=== PATIENT | female | born 1985 | race Caucasian/White ===

== ENCOUNTER 2023-05-06 15:38 | Emergency (ER) | payer OTHER, SELFPAY ==
--- NOTE | ~2023-05-06 | CT_ITS ---
EXAMINATION: CT abdomen pelvis w con DATE: 05/06/2023 18:29 INDICATION: Right upper quadrant abdominal pain. Abnormal liver function tests. TECHNIQUE: Computed tomography (CT) of the abdomen and pelvis was performed with 100 mL Omnipaque-350 intravenous contrast. Automated exposure control and iterative reconstruction technique were employe d. The dose-length product was 1486.35 mGy-cm. COMPARISON: None FINDINGS: Lung bases are clear. Heart size is normal. No pericardial or pleural effusion. A few small calcified gallstones along the inferior aspect of the fundus of the otherwise normal-appearing gallbladder. No gallbladder dilation, wall thickening or pericholecystic infiltrate stranding to suggest acute evie cystitis. No calcified choledocholithiasis with no intra or extrahepatic biliary ductal dilation. Ara er, spleen, pancreas, bilateral adrenal glands and left kidney are normal. 4.2 cm exophytic right meredith al cyst. Bowels including the appendix are normal. 3 cm left adnexal cyst/follicle. Right adnexa, sav[place]ong[place] fili and bladder are normal. No free intraperitoneal gas or fluid. No pathologically enlarged abdomina l or pelvic lymphadenopathy. Mild lower lumbar levocurvature. IMPRESSION: 1. Cholelithiasis without findings of acute cholecystitis, choledocholithiasis or biliary ductal dila tion. Should liver function tests remain elevated would consider further evaluation with MRCP. Reviewed, dictated and finalized at location A. IMPRESSION: 1. Cholelithiasis without findings of acute cholecystitis, choledocholithiasis or biliary ductal dilation. Should liver function tests remain elevated would c onsider further evaluation with MRCP.
[2023-05-06 15:45] VITALS: BP 144/83; PULSE 108; RESP 16; TEMP 36.8; O2SAT 99
[2023-05-06 16:38] LABS: Basophils Absolute Auto 0.1 K/mm3 (0.0-0.1); Basophils Percent Auto 0.4 % (0.2-1.2); Eosinophils Absolute Auto 0.1 K/mm3 (0-0.3); Eosinophils Percent Auto 0.8 % (0-4.4); Hematocrit 44.5 % (37.0-47.0); Hemoglobin 14.9 g/dL (12.0-15.0); Immature Granulocyte Absolute 0.04 K/mm3 (0.00-0.031); Immature Granulocyte Percent A 0.4 % (0-0.5); Lymphocytes Absolute Auto 2.34 K/mm3 (0.9-3.2); Lymphocytes Percent Auto 20.6 % (18.3-44.2); Mean Corpuscular HGB Conc 33.5 g/dl (32-36); Mean Corpuscular Hemoglobin 30.3 pg (26-34); Mean Corpuscular Volume 90.6 fl (80-100); Mean Platelet Volume 9.5 fl (7.4-10.4); Monocytes Absolute Auto 0.7 K/mm3 (0.1-0.6); Monocytes Percent Auto 6.2 % (2.6-8.5); Neutrophils Absolute Auto 8.1 K/mm3 (1.3-6.7); Neutrophils Percent Auto 71.6 % (45.5-73.1); Platelet Count Result 356 k/mm3 (150-375); Red Blood Count 4.91 M/mm3 (4.2-5.4); Red Cell Distribution Width 12.1 % (11.5-14.5); White Blood Count 11.4 K/mm3 (4.5-10.0)
[2023-05-06 16:48] LABS: Alanine Aminotransferase 85 U/L (6-35); Albumin Level 4.4 g/dL (3.5-5.1); Alkaline Phosphatase 78 U/L (38-126); Anion Gap 8 mmol/L (8-16); Aspartate Amino Transferase 117 U/L (14-36); Bilirubin,Total 0.6 mg/dL (0.2-1.3); Blood Urea Nitrogen 13 mg/dL (7-17); Calcium 8.9 mg/dL (8.4-10.2); Carbon Dioxide 26 mmol/L (22-30); Chloride 105 mmol/L (98-107); Estimated CRCL calculation 104 ml/min; Estimated Glomerular Filt Rate > 60; Glucose 119 mg/dL (65-110); Lipase 36 U/L (23-300); Sodium 139 mmol/L (137-145)
[2023-05-06] MEDS: ONDANSETRON INJ 4 MG/2 ML VIAL IV PUSH (16:49)
[2023-05-06] MEDS: SODIUM CHLORIDE 0.9% IV 1,000 ML 999 ML IV CONT (16:49)
[2023-05-06] MEDS: MORPHINE SULFATE (*CRX) 4 MG/ML INJ IV PUSH (16:49)
--- NOTE | 2023-05-06 16:53 | ED.ABDPAIN ---
HPI - Abdominal Pain General Chief Complaint: Abdominal Pain Stated Complaint: RUQ abdominal/epigastric pain Time Seen by Provider: 05/06/23 16:09 Source: patient Mode of arrival: ambulatory Limitations: no limitations History of Present Illness HPI narrative: Patient is a 37-year-old female who presents to ED with report of right upper quadrant abdominal pain. Patient reports she was woken up in the middle of the night with pain in her RUQ. She states the pain eventually improved slightly this morning, but then became worse again after eating a [employer] sandwich for lunch. Pain has been constant since then. She reports nausea and diaphoresis. Denies documented fever. Denies vomiting. Denies any issues with diarrhea or constipation. Denies urinary symptoms. She tried taking Tylenol for the pain without relief. Related Data Home Medications Medication Instructions Recorded Confirmed dicyclomine 20 mg tablet 20 mg PO BID 07/04/22 07/04/22 famotidine 20 mg tablet 20 mg PO DAILY 07/04/22 07/04/22 Allergies Allergy/AdvReac Type Severity Reaction Status Date / Time Penicillins Allergy Severe Rash Verified 05/06/23 15:39 Review of Systems Review of Systems: CONSTITUTIONAL: Denies fever, chills, or sweats. CARDIOVASCULAR: Denies chest pain. RESPIRATORY: Denies dyspnea. GASTROINTESTINAL: See HPI. GENITOURINARY: Denies dysuria or hematuria. 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 HEAD: Normocephalic, atraumatic. NECK: Supple. No adenopathy, no masses. RESPIRATORY: Airway patent, respirations nonlabored. Clear to auscultation bilaterally, no rales, rhonchi, wheezing. CARDIOVASCULAR: Regular rate and rhythm without murmurs, rubs, or gallops. Radial pulses 2+ and equal bilaterally. ABDOMINAL: Soft, tenderness throughout RUQ and epigastric region, nondistended, no hepatosplenomegaly. Normoactive BS. MUSCULOSKELETAL: Moves all extremities. Strength/ROM intact without gross deformities. SKIN: Warm, dry, normal color. No rashes. NEURO: A&O X3. Speech clear. Cranial nerves II-XII grossly intact. Steady gait. No ataxic movements. PSYCHIATRIC: Appropriate mood and affect. Normal interaction. Course Vital Signs Vital signs: Vital Signs Temperature 98.3 F 05/06/23 15:45 Pulse Rate 108 H 05/06/23 15:45 Respiratory Rate 16 05/06/23 15:45 Blood Pressure 144/83 H 05/06/23 15:45 Pulse Oximetry 99 05/06/23 15:45 Oxygen Delivery Room Air 05/06/23 15:45 Temperature 98.3 F 05/06/23 15:45 Pulse Rate 108 H 05/06/23 15:45 Respiratory Rate 16 05/06/23 15:45 Blood Pressure 144/83 H 05/06/23 15:45 Pulse Oximetry 99 05/06/23 15:45 Oxygen Delivery Room Air 05/06/23 15:45 MDM - Abdominal Pain MDM Narrative Medical decision making narrative: Patient presented to ED with right upper quadrant pain, began this morning, constant after eating [employer] sandwich. Patient borderline tachycardic upon arrival, likely component of pain. CBC with leukocytosis of 11.4. CMP with stable
[2023-05-06 18:13] LABS: Appearance Urine Cloudy (Clear); Bacteria Urine Rare /hpf; Bilirubin Urine Negative (Negative); Blood Urine Trace (Negative); Color Urine Yellow (Yellow); Glucose Urine UA Negative (Negative); Ketones Urine Negative (Negative); Leukocyte Esterase Ur 2+ LEU/UL (Negative); Nitrate Urine Negative (Negative); Non Pathogenic Casts 0-2; Protein Urine Negative (Negative); RBC Urine 0-2 /hpf (0-2); Specific Grav Ur 1.016 (1.001-1.035); Squamous Epithelial Cell Urine Occasional /hpf (Few); Urobilinogen Urine 0.2 mg/dL (<2.0); WBC Urine 21-50 /hpf; pH Urine 5.5 (5.0-9.0)
[2023-05-06 18:22] LABS: Add Urine Microscopic? YES
[2023-05-06 19:39] VITALS: BP 132/79; PULSE 86; RESP 16; O2SAT 98
== END 2023-05-06 19:41 | disposition home or self-care (01) ==
PROVIDERS: Emergency Medicine; Emergency Provider Physician Assistant; PCP Nurse Practitioner Family
DX: K80.20 Calculus of gallbladder without cholecystitis without obstruction (principal); N30.00 Acute cystitis without hematuria; R12 Heartburn
CPT/HCPCS: 36415; 74177; 80053; 81001; 81025; 83690; 85025; 87086; 87088; 96361; 96374; 96375; 99284; J2270; J2405; J7030; Q9967

== ENCOUNTER 2023-06-08 08:29 | Outpatient (CLI) | payer OTHER, SELFPAY ==
[2023-06-08 09:04] LABS: Alanine Aminotransferase 64 U/L (6-35); Alkaline Phosphatase 68 U/L (38-126); Amylase 65 U/L (30-110); Aspartate Amino Transferase 32 U/L (14-36); Bilirubin,Total 0.4 mg/dL (0.2-1.3); Lipase 40 U/L (23-300)
== END 2023-06-08 08:30 | disposition home or self-care (01) ==
LOC: ANHSURGERY 08:33
PROVIDERS: PCP Nurse Practitioner Family; Visit Provider Surgery
DX: Z01.818 Encounter for other preprocedural examination (principal); K80.20 Calculus of gallbladder without cholecystitis without obstruction
CPT/HCPCS: 36415; 80076; 82150; 83690; 86850; 86900; 86901

== ENCOUNTER 2023-06-12 00:26 | Day surgery (SDC) | payer OTHER, SELFPAY ==
[2023-05-31 14:25] VITALS: BMI 36.3
--- NOTE | 2023-05-31 15:18 | SUR.PREOP ---
Addendum entered by Keysha Manzano RN 06/01/23 14:24: PLEASE SHOWER WITH HIBICLENS (CHLORHEXADINE) NIGHT BEFORE SURGERY OR MORNING OF SURGERY. Original Note: Report to the Outpatient Waiting Room, entrance under the green pavilion located off [facility], at time 12:30 on date 06/12/23. Planned Procedure Time: 1430. Time changes happen often and if your time is changed the preop area will call you the afternoon before. - You and your visitor will be asked to self-screen and do not enter if you have any COVID symptoms. - A mask is optional within the hospital at this time. Patients may have clear liquids (water, carbonated beverages, clear teas, apple juice) until 3 hours prior to surgery with a maximum of 20 ounces. - No food from midnight until time of surgery - Infants may have breast milk until 4 hours before surgery, formula 6 hours prior to surgery. - Children will be allowed to drink immediately following surgery. If applicable, please bring a bottle or sippy cup to assist with drinking. Juice, water, soda, and popsicles are readily available. For infants on formula, please bring formula the day of surgery. Pacifiers are allowed. Take the following medications with a SIP of water the morning of surgery: CONTROL PILL DO NOT STOP ANY OF YOUR OTHER PRESCRIPTION MEDICATIONS PRIOR TO SURGERY ?EXCEPT THE FOLLOWING Medications to discontinue per physician ALL VITAMINS AND SUPPLEMENTS TO STOP 3 DAYS PRIOR TO PROCEDURE Date to take last dose 06/08/23 Please no make-up, nail occitan, hairspray, perfume, deodorant, or body powder the day of surgery. No jewelry (including any body piercings) or valuables the day of surgery, leave them at home. Please take a shower or bath the night before, or the morning of, surgery with an antibacterial soap. Wear comfortable, loose fitting clothing. Children are encouraged to wear pajamas. - Jewelry must be removed prior to entering the operating room. Rings and piercings that are not removed may be cut off. - The hospital will not accept responsibility for valuables. - Please leave all valuables, including medications, at home the day of surgery. If you are going home after surgery, a licensed medical van driver must drive you home. - NO public transportation without another adult if you receive anesthesia. - We recommend that an adult stay with you for 24 hours following discharge. - We also recommend that you do not drive, make important decision, drink alcoholic beverages, or take any drugs that were not prescribed by your health care provider for at least 24 hours after your discharge time. For Pediatric surgeries, we recommend two adults accompany the child home. Follow any additional instructions given to you from your surgeon. If you or anyone in your household have experienced Covid symptoms in the past week, please notify your surgeon or the nurse liaison at the phone number below for possible testing. Telephone instructions given to LATANYA BANUELOS and asked if any additional questions and then verbalized understanding. Patient advised to call surgeon office or pre surgery nurse liaison [phone] if any additional questions.
[2023-06-12] VITALS (12 sets, daily range): BP systolic 111–141; BP diastolic 50–73; PULSE 78–106; RESP 13–20; TEMP 36.5; O2SAT 97–100
--- NOTE | ~2023-06-12 | XR_ITS ---
EXAMINATION: XR cholangiogram surg 1st inj DATE: 06/12/2023 14:45 INDICATION: Intraoperative evaluation during laparoscopic cholecystectomy TECHNIQUE: Multiple fluoroscopic images of the right upper quadrant were obtained during intraoperati ve cholangiography. A total of 58 fluoroscopic images were obtained. The amount of fluoroscopy time used during this procedure was 0.2 minutes. COMPARISON: None. FINDINGS: Cannulation of the cystic duct demonstrates filling of a normal appearing common bile duct which tape rs smoothly distally with no intraluminal filling defects or stricture. Contrast extends into the du odenum and central intrahepatic biliary tree which also appears normal. IMPRESSION: 1. No filling defects or strictures within the common bile duct or contrast opacified central biliary tree. Reviewed, dictated and finalized at location B. IMPRESSION: 1. No filling defects or strictures within the common bile duct or contrast opa cified central biliary tree.
[2023-06-12] MEDS: LACTATED RINGERS 1,000 ML 30 ML IV CONT ×2 (13:07→16:11)
[2023-06-12] MEDS: KETOROLAC 15 MG/ML VIAL (*BKC) IV PUSH (13:08)
[2023-06-12] MEDS: ACETAMINOPHEN 500 MG TABLET 1000 MG PO (13:08)
--- NOTE | 2023-06-12 13:35 | P.PNAN_ITS ---
Anes - Initial Pre Proc Eval Procedure: Operation Date: 06/12/23 14:30 Proposed Procedures p Laparoscopic Cholecystectomy with Intraoperative Cholangiogram, Possible Open - Dorian Chopra DO Date/Time: 06/12/23 13:35 Surgeon: Dorian Chopra DO Pre Op Diagnosis: symp cholelithiasis Patient Data Age: 37 Gender: F Height: 1.68 m Weight: 100.6 kg Allergies Allergy/AdvReac Type Severity Reaction Status Date / Time Penicillins Allergy Severe Rash Verified 06/12/23 12:44 Home Medications Medication Instructions Recorded Confirmed Type norethindrone 1.5 mg-ethinyl 1 tablet PO DAILY #84 tabs 07/04/22 06/12/23 Rx estradiol 30 mcg(21)/iron 75 mg(7) tablet (Junel FE 1.5/30 (28)) Adult Probiotic 1 cap PO DAILY 05/31/23 06/12/23 History Adults Multivitamin 1 cap PO DAILY 05/31/23 06/12/23 History Vitamin D (with calcium) 1 cap PO DAILY 05/31/23 06/12/23 History magnesium 1 cap PO DAILY 05/31/23 06/12/23 History vitamin [id number] acid 1 cap PO DAILY 05/31/23 06/12/23 History Patient hx anesthesia problems: none Family hx anesthesia problems: none Results Review: All pre-operative results and documents have been reviewed as part of the pre-operative evaluation. 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 Gender identity (if verbalized by the patient): Female Sexual Orientation (if Verbalized by the Patient): Straight or Heterosexual Spiritual care concerns: No Anes - Eval Final PreProcedure Day of Procedure 06/12/23 13:35 Patient weight: obese Heart: regular rate and rhythm Lungs: clear to auscultation Airway: Mallampati scale class II Neurological: alert and oriented Last oral intake: >/= 8 hours ASA classification: II Emergent: no Anesthetic plan: proceed Anesthesia type and monitoring: general ETT and standard monitoring Results Review: All pre-operative results and documents have been reviewed as part of the pre- operative evaluation. Informed Consent: The patient's anesthetic plan and its attendant risks and benefits were discussed with the patient/family/POA. Questions were solicited and answers provided to the satisfaction of the patient/family/POA.
--- NOTE | 2023-06-12 13:38 | WPDHPUPDATE1 ---
History and Physical Update Update Date/Time: 06/12/23 13:38 History and Physical has been reviewed, including an updated exam of the patient. There are NO changes in the patient's condition. Risks, benefits, and alternatives have been discussed and questions answered. Patient agrees to proceed with procedure.
[2023-06-12] MEDS: SCOPOLAMINE 1.5 MG PATCH TRANSDERM (13:44)
[2023-06-12] MEDS: ceFAZolin 2 GM/D5W 50 ML 2 GM/50 ML BAG IVPB (13:51)
[2023-06-12] MEDS: BUPIVACAINE/EPINEPHRINE 0.25% 10 ML VIAL 30 ML INFILTRATE (14:29)
--- NOTE | 2023-06-12 15:02 | W.PM.PROC2 ---
Procedure Note - Detailed Date of Procedure 06/12/23 Pre-op Diagnosis Symptomatic cholelithiasis, elevated liver enzymes Post-op Diagnosis Same Procedure Performed Laparoscopic cholecystectomy with intraoperative cholangiogram Surgeon Dorian Chopra DO Anesthesia General and Local (0.5% bupivacaine) Indications This is a 37-year-old woman who presented with right upper quadrant abdominal pain that started about 1 month ago. She presented to the emergency department with acute onset of the pain and was noted to have elevated liver enzymes and CT showed evidence of cholelithiasis. Follow-up labs did show the liver enzymes slowly improving but still slightly elevated. Discussions were made with the patient about treatment options and decision was made to proceed with laparoscopic cholecystectomy with cholangiogram. Findings Laparoscopic cholecystectomy with cholangiogram was performed. The gallbladder appeared slightly dilated. The cystic duct appeared to be normal sized. Intraoperative cholangiogram was obtained with Omnipaque contrast and no filling defects or obstruction were identified. The gallbladder was removed and sent to the lab for pathology. Description of Procedure Procedure as well as risks, benefits, and alternatives were discussed with patient. Written consent was obtained and placed in chart prior to procedure. The patient was brought back to surgical suite. Patient was placed in supine position on operating table. Time-out was done to confirm patient and procedure. Patient was then intubated by the anesthesia department. Abdomen was prepped and draped in sterile fashion using chlorhexidine prep. 0.5% bupivacaine with epinephrine was infiltrated at each site of incision. A 5 millimeter incision was made near the umbilicus, and a 5 millimeter Optiview trocar was advanced through the abdominal layers under direct visualization. Once inside the abdominal cavity, carbon dioxide was insufflated to create a pneumoperitoneum. The camera was inserted and the abdomen was inspected. No immediate abnormalities were identified. The patient was placed in reverse Trendelenburg position and rotated slightly to the left. An 11 millimeter incision was made in the subxiphoid region, and an 11 millimeter trocar was inserted under direct visualization. Two 5 millimeter incisions were made in the right upper quadrant, and two 5 millimeter trocars were inserted under direct visualization. The gallbladder was identified and grasped at the fundus and retracted superiorly. It was then grasped at the infundibulum retracted laterally. Careful dissection around the neck of the gallbladder was performed using blunt dissection with a [place] grasper and hook electrocautery. The cystic duct was identified, and a window was created behind it. The cystic artery was also identified and a window was created behind it. The critical view of safety was identified, visualizing the cystic duct running directly into the neck of the gallbladder, and the cystic artery running directly into the wall of the gallbladder. A 5 millimeter clip port crane operator was then used to place 2 clips proximally and 1 clip distally on the cystic artery. It was then transected using endoscopic scissors. The Bhakta clamp was then advanced across the distal neck of the gallbladder. The cholangiocatheter was then advanced into the distal neck gallbladder. It flushed with saline with ease. The patient was then flattened out of bed and fluoroscopy was used to obtain a cholangiogram with Omnipaque contrast. The images were then sent to radiologist for interpretation. Patient was then placed back in reverse Trendelenburg position. 5 mm clip port crane operator was then used to place 2 clips proximally and 1 clip distally on the cystic duct. It was then transected using endoscopic scissors. Once safely away from the silvana hepatitis, the gallbladder was dissected free from the liver bed using hook electrocauter
[2023-06-12] MEDS: fentaNYL CITRATE INJ (*CRX) 100 MCG/2 ML VIAL 25 MCG IV PUSH ×7 (15:29→16:57)
--- NOTE | 2023-06-12 15:31 | SUR.PHASEI ---
1530: Simple mask removed.
[2023-06-12] MEDS: oxyCODONE HCL (*CRX) 5 MG TAB IR PO (16:23)
== END 2023-06-12 17:27 | disposition home or self-care (01) ==
PROVIDERS: PCP Nurse Practitioner Family; Visit Provider Surgery
PROC: 0FT44ZZ Resection of Gallbladder, Percutaneous Endoscopic Approach (ICD-10-PCS; CPT 47562; principal; 2023-06-12 14:30)
DX: K80.10 Calculus of gallbladder with chronic cholecystitis without obstruction (principal); E66.9 Obesity, unspecified; Z68.35 Body mass index [BMI] 35.0-35.9, adult
CPT/HCPCS: 47563; 36415; 74300; 80076; 82150; 83690; 86850; 86900; 86901; 88304; A9270; J0690; J1100; J1170; J1885; J2250; J2405; J2704; J3010; J7120; Q9966